=== PATIENT | male | born 1985 | race African-American/Black ===

== ENCOUNTER 2020-09-13 18:58 | Inpatient (IN) | payer OTHER ==
[~2020-09-13] VITALS: Ht 190.5 cm; Wt 73.6 kg
[2020-09-13 18:59] VITALS: BP 134/66
[2020-09-13 19:51] LABS: ABSOLUTE NEUTROPHILS 4.3 thou/uL (1.4-8.2); BASOPHILS 0.9 % (0.0-2.0); EOSINOPHILS 2.6 % (0.0-3.0); HEMATOCRIT 31.4 % (42.0-52.0); LYMPHOCYTES 37.1 % (24.0-44.0); MCH 33.1 pg (26.0-34.0); MCHC 34.9 g/dL (28.0-37.0); MCV 94.8 fL (80.0-100.0); MONOCYTES 7.4 % (1.0-8.0); PLATELET COUNT 298 thou/uL (150-400); RBC 3.31 mil/uL (4.50-6.00); WBC 8.2 thou/uL (4.0-11.0)
[2020-09-13 20:00] LABS: CALCIUM 8.7 mg/dL (8.5-10.1); CREATININE 1.1 mg/dL (0.7-1.3); POTASSIUM 4.2 mmol/L (3.5-5.1)
[2020-09-13 20:08] LABS: ALBUMIN 2.9 g/dL (3.4-5.0); DIRECT BILIRUBIN 0.1 mg/dL (<0.1-0.2); TOTAL BILIRUBIN 0.3 mg/dL (0.2-1.0); TOTAL PROTEIN 6.7 g/dL (6.4-8.2)
[2020-09-13 20:28] LABS: APTT 22.4 Seconds (24.5-32.8); INR 1.05; PROTIME 11.4 Seconds (10.5-12.1)
[2020-09-13 21:02] VITALS: BP 108/67
[2020-09-13 21:34] VITALS: BP 108/67
[2020-09-14] VITALS: BP 136/87
--- NOTE | 2020-09-14 03:05 | NUR ---
ASSESSMENT: PT ARRIVED ON THE UNIT AT 2130 VIA CART FROM ED. PT IS ALERT AND ORIENT TIMES FOUR. UP AD CAMILLE, SLIGHTLY WEAK. VSS, AFEBRILE. DENIES N/V AND BLOODY STOOLS. SR PER MONITOR. ST WITH ELEVATION. TOLERATING PO INTAKE WITHOUT NAUSEA. CT OF ABD SCHEDULED FOR AM. CONSULT FOR JIM SALMON (GASTROENDTEROLOGY). DENIES ABD PAIN. PT HAS BEEN TYPE/SCREEN. SLOW PROGRESS TOWARDS DC GOALS, WILL CONTINUE TO MONITOR.
[2020-09-14 04:45] VITALS: BP 122/70
[2020-09-14 05:02] LABS: MCH 33.6 pg (26.0-34.0); MCHC 35.5 g/dL (28.0-37.0); MCV 94.8 fL (80.0-100.0); RBC 2.53 mil/uL (4.50-6.00); RDW 12.5 % (10.5-14.5); WBC 8.9 thou/uL (4.0-11.0)
[2020-09-14 05:03] LABS: CALCIUM 7.8 mg/dL (8.5-10.1); CREATININE 0.8 mg/dL (0.7-1.3); POTASSIUM 4.2 mmol/L (3.5-5.1)
[2020-09-14 05:13] LABS: HEMOGLOBIN 8.5 gm/dL (14.0-18.0)
[2020-09-14 07:15] VITALS: BP 127/67
[2020-09-14 12:15] VITALS: BP 139/69
[2020-09-14 15:55] VITALS: BP 135/71
[2020-09-14 19:31] VITALS: BP 137/68
[2020-09-15 04:27] VITALS: BP 128/79
--- NOTE | 2020-09-15 05:21 | NUR ---
SLEPT MOST OF SHIFT. UP AD CAMILLE IN ROOM WITH STEADY GAIT. DENIES COMPLAINTS OF BLEEDING OR PAIN. STATES HE FEELS MUCH BETTER. WORKING ON GOALS AND PLAN OF CARE FOR NOC. CONTINUE TO ASSES.
[2020-09-15 08:35] LABS: HEMATOCRIT 21.9 % (42.0-52.0); HEMOGLOBIN 7.6 gm/dL (14.0-18.0)
[2020-09-15 11:55] VITALS: BP 127/86
[2020-09-15 14:51] VITALS: BP 127/86
[2020-09-15] MEDS ORDERED: PROTONIX 20 MG20 M1 PO (14:53)
--- NOTE | 2020-09-15 15:19 | NUR ---
RECEIVED THE PATIENT CONSCIOUS AND ORIENTED.ON ROOM AIR BREATHING SPONTANEOUSLY.NOT IN PAIN OR DISTRESS.HIS IV WAS OUT EARLY THIS MORNING AND PATIENT REFUSED TO HAVE IT REINSERTED SINCE ACCORIDNG TO HIM HE WILL BE DISCHARGED TODAY.GI DOCTOR REVIWED THE CBC TODAY AND IT WAS OK TO DISCHARGE THE PATIENT ON THEIR STANDPOINT. WAS ALSO OK TO DISCHARGE THE PATIENT.
--- NOTE | 2020-09-17 18:06 | PATH ---
[facility] [address] [place] [address] PATHOLOGY RPT PROCEDURE Name: ROSALINDA MARY Room #: 209-P DIS IN M.R.#: [id number] Admission: 09/13/20 Date of : 81 Discharge: 09/15/20 Report #: [id number] Path Case #: [id number] [facility] Accession Number: [id number] . 01 Material submitted: . stomach - ANTRAL BIOPSY FOR H.PYLORI . 01 Clinical history: . GI BLEED, DUODENAL / GASTRIC ULCER . 02 Diagnosis: Gastric mucosa, antrum for Helicobacter pylori, endoscopic biopsy: - Helicobacter pylori induced moderate active gastritis. - Negative for intestinal metaplasia or atrophy. - Numerous Helicobacter pylori organisms present on the properly controlled immunohistochemical stain. (I[facility]:pit; 09/17/2020) QTP 09/17/2020 1215 Local . 02 Electronically signed: . Keely Patel MD, Pathologist NPI- [id number] . 01 Gross description: . Received in formalin labeled "Mary, Mirzate, antral biopsy for H. pylori " is a fragment of sharma-brown soft tissue measuring 0.8 x 0.4 x 0.3 cm. The specimen is submitted entirely in A1. ([facility]; 09/16/2020) GZA/GZA 09/16/2020 1759 Local . 02 Pathologist provided ICD-10: K29.60, B96.81 . 02 CPT . 749742, [id number] Specimen Comment: A courtesy copy of this report has been sent to [phone] Specimen Comment: Report sent to Performed at: [address], [place] [id number] MD Pacheco Euceda MD Phone: [phone] Performed at: [address] [id number] MD Keely Patel MD Phone: [phone]
== END 2020-09-15 15:10 | disposition home or self-care (01) | DRG 378 ==
LOC: ER 18:58 → EROBS 20:44 → 2N 21:36
PROVIDERS: Nurse Practitioner; Nurse Practitioner Family; ADMIT Hospitalist; ATTEND Hospitalist
PROC: 3E0G8GC Introduction of Other Therapeutic Substance into Upper GI, Via Natural or Artificial Opening Endoscopic (ICD-10-PCS; principal; 2020-09-14)
PROC: 0DB78ZX Excision of Stomach, Pylorus, Via Natural or Artificial Opening Endoscopic, Diagnostic (ICD-10-PCS; principal; 2020-09-14)
DX: K25.4 Chronic or unspecified gastric ulcer with hemorrhage (principal); D62 Acute posthemorrhagic anemia; F17.210 Nicotine dependence, cigarettes, uncomplicated; F12.90 Cannabis use, unspecified, uncomplicated; F10.10 Alcohol abuse, uncomplicated; K44.9 Diaphragmatic hernia without obstruction or gangrene; K26.4 Chronic or unspecified duodenal ulcer with hemorrhage; Z20.822 Contact with and (suspected) exposure to COVID-19; Z91.19 Patient's noncompliance with other medical treatment and regimen; Z71.6 Tobacco abuse counseling; Z71.41 Alcohol abuse counseling and surveillance of alcoholic
CPT/HCPCS: 10081; 62110; 62900; 70005

== ENCOUNTER 2020-09-16 20:04 | Inpatient (IN) | payer OTHER ==
[2020-09-16] VITALS (11 sets, daily range): BP systolic 38–143; BP diastolic 14–63
[~2020-09-16] VITALS: Ht 182.9 cm; Wt 74.8 kg
[~2020-09-16 20:04] MED LIST: PROTONIX 20 MG20 M1 PO
[2020-09-16 21:06] LABS: EOSINOPHILS 0.9 % (0.0-3.0)
[2020-09-16 21:09] LABS: BASOPHILS 0.5 % (0.0-2.0); LYMPHOCYTES 37.2 % (24.0-44.0); MCH 34.4 pg (26.0-34.0); MCHC 34.9 g/dL (28.0-37.0); MCV 98.6 fL (80.0-100.0); POLYS 57.4 % (36.0-66.0); RBC 1.27 mil/uL (4.50-6.00); RDW 12.8 % (10.5-14.5); WBC 6.9 thou/uL (4.0-11.0)
[2020-09-16 21:12] LABS: HEMATOCRIT 12.5 % (42.0-52.0); HEMOGLOBIN 4.4 gm/dL (14.0-18.0)
[2020-09-16 21:19] LABS: CALCIUM 7.8 mg/dL (8.5-10.1); CREATININE 0.9 mg/dL (0.7-1.3); POTASSIUM 4.3 mmol/L (3.5-5.1)
[2020-09-16 21:22] LABS: ALBUMIN 2.4 g/dL (3.4-5.0); DIRECT BILIRUBIN < 0.1 mg/dL (<0.1-0.2); LIPASE 158 U/L (73-393); SGOT 17 U/L (15-37); SGPT 16 U/L (30-65); TOTAL BILIRUBIN 0.2 mg/dL (0.2-1.0); TOTAL PROTEIN 4.8 g/dL (6.4-8.2)
[2020-09-16 22:02] LABS: ABSOLUTE NEUTROPHILS 8.2 thou/uL (1.4-8.2); BASOPHILS 0.5 % (0.0-2.0); EOSINOPHILS 0.8 % (0.0-3.0); MCH 33.7 pg (26.0-34.0); MCHC 35.3 g/dL (28.0-37.0); MCV 95.3 fL (80.0-100.0); MONOCYTES 5.2 % (1.0-8.0); PLATELET COUNT 179 thou/uL (150-400); POLYS 71.5 % (36.0-66.0); RDW 12.5 % (10.5-14.5); WBC 11.5 thou/uL (4.0-11.0)
[2020-09-16 22:04] LABS: HEMATOCRIT 11.5 % (42.0-52.0)
--- NOTE | 2020-09-16 22:13 | NUR ---
Called to give report but was told to call back due to RNs dealing with a difficult pt at this time
[2020-09-16 22:49] LABS: PLATELET COUNT 9 thou/uL (150-400)
[2020-09-17] VITALS (41 sets, daily range): BP systolic 77–152; BP diastolic 46–126
[2020-09-17 04:23] LABS: CALCIUM 7.7 mg/dL (8.5-10.1); CREATININE 0.8 mg/dL (0.7-1.3)
[2020-09-17 04:35] LABS: HEMATOCRIT 23.1 % (42.0-52.0); MCH 32.2 pg (26.0-34.0); MCHC 34.4 g/dL (28.0-37.0); MCV 93.6 fL (80.0-100.0); RBC 2.47 mil/uL (4.50-6.00); WBC 12.1 thou/uL (4.0-11.0)
--- NOTE | 2020-09-17 12:51 | NUR ---
0730-SLEEPING.--VW 0930-PIV'S RT ARM BOTH INFILTRATED.ARM PAINFUL,SWOLLEN.PT STATES IT HAS BEEN LIKE THAT SINCE THE BLOOD WAS GIVEN. NEW PIV LT FA,IV'S ON RT D/C'D. WARM COMPRESS TO RT ARM.DENIES ABD PAIN/DISCOMFORT.NO NAUSEA.--VW 1000-PERMIT FOR EGD paige HUERTA NP,IN TO SEE PT. PT INSTRUCTED ON NPO. DID NOT TAKE ANY CLR LQDS FOR BREAKFAST. PT LYING W COVERS OVER HIS HEAD. N/C/NEEDS VOICED.--VW 1250-TO G.I. LAB W G.I. CREW VIA STRETCHER. PT STOOD TO GET ON STRETCHER.--VW
--- NOTE | 2020-09-17 13:10 | NUR ---
Assessment completed w/ pt at bedside. Pt A&Ox4 Pt lives alone in apt home on 3rd floor w/ elevator no steps RX: [facility] [address] [place] [address] Pt is unsinsured and may need medication assistance upon D/C COVID vaccine: None No preious hx w/ HH/SNF/LTACH/REHAB/HOSPICE/DIALYSIS FAMILY TO TRANSPORT HOME UPON D/C SPOKESPERSON IF PT IS INCAPICITATED: ZACKARY NOK: COUSIN BOB BE [phone] NO PCP: PCP LIST PROVIDED FOR PT TO MAKE APPOINTMENT SW provided pt w/ additional resources for medication assistance and PCP list in the area D/C PLAN: Home when medically stable - pt may need assistance for medication
[2020-09-18] VITALS (15 sets, daily range): BP systolic 106–132; BP diastolic 55–86
[2020-09-18 05:29] LABS: HEMOGLOBIN 8.1 gm/dL (14.0-18.0)
[2020-09-18 16:08] LABS: URINE BILIRUBIN NEGATIVE (Negative); URINE BLOOD NEGATIVE (Negative); URINE CLARITY CLEAR; URINE COLOR YELLOW; URINE GLUCOSE-RANDOM* NEGATIVE (Negative); URINE KETONES NEGATIVE (Negative); URINE LEUKOCYTES-REFLEX NEGATIVE (Negative); URINE NITRITE-REFLEX NEGATIVE (Negative); URINE PROTEIN (DIPSTICK) NEGATIVE (Negative); URINE UROBILINOGEN 0.2 E.U./dl (0.2-1.0)
--- NOTE | 2020-09-18 16:43 | NUR ---
ASSUMED CARE AT 0700. PATIENT PROGRESSING TOWARDS THE PLAN OF CARE. PATIENT HAS CC TELE ORDERS AND AWAITING A BED.
[2020-09-19 07:48] LABS: CALCIUM 8.1 mg/dL (8.5-10.1); CREATININE 1.1 mg/dL (0.7-1.3); MAGNESIUM 1.8 mg/dL (1.8-2.4); POTASSIUM 4.1 mmol/L (3.5-5.1)
[2020-09-19 07:53] LABS: HEMATOCRIT 24.3 % (42.0-52.0); HEMOGLOBIN 8.6 gm/dL (14.0-18.0); MCH 33.8 pg (26.0-34.0); MCHC 35.4 g/dL (28.0-37.0); MCV 95.6 fL (80.0-100.0); RBC 2.54 mil/uL (4.50-6.00); RDW 13.5 % (10.5-14.5); WBC 10.6 thou/uL (4.0-11.0)
[2020-09-19 08:25] VITALS: BP 126/84
[2020-09-19 10:00] VITALS: BP 126/84
[2020-09-19 13:04] VITALS: BP 125/75
[2020-09-19 16:32] VITALS: BP 99/62
--- NOTE | 2020-09-19 18:02 | NUR ---
PT ARRIVED TO UNIT APPROX 1745. PT ALERT ORIENTED.VSS. DENIES PAIN. NO S/SX BLEEDING. PLAN FOR DC ONCE MEDICALLY STABLE. CURRENTLY ASKING FOR FOOD, WILL ATTEND TO PT'S NEEDS. CONT POC. WILL PASS ON REPORT TO NOC RN
[2020-09-19 20:15] VITALS: BP 133/86
[2020-09-20 02:42] LABS: HEMATOCRIT 24.7 % (42.0-52.0); HEMOGLOBIN 8.6 gm/dL (14.0-18.0); MCHC 34.9 g/dL (28.0-37.0); MCV 94.6 fL (80.0-100.0); RBC 2.61 mil/uL (4.50-6.00); RDW 13.3 % (10.5-14.5); WBC 12.8 thou/uL (4.0-11.0)
[2020-09-20 04:36] VITALS: BP 125/84
[2020-09-20 07:15] VITALS: BP 134/88
--- NOTE | 2020-09-20 07:50 | NUR ---
SLEPT MOST OF SHIFT. UP AD CAMILLE IN ROOM WITH STEADY GAIT. WORKING ON GOALS AND PLAN OF CARE FOR NOC. CONTINUE TO ASSES CLOSELY.
[2020-09-20 11:15] VITALS: BP 125/82
[2020-09-20] MEDS ORDERED: CLARITHROMYCIN250 M2 PO (12:41)
[2020-09-20] MEDS ORDERED: AMOXICILLIN 50500 M1 PO (12:41)
[2020-09-20 12:45] VITALS: BP 125/82
--- NOTE | 2020-09-20 13:07 | NUR ---
Pt dcing home today and ridida is here. He has a month of protonix at home and gets paid today so he will fill his atb scripts at [facility] this afternoon. He is also heading to [facility] to get his financial services binu approved for the discount there. Cm has [facility]ed [facility] refills should he need to get a 1 or 2 filled here by voucher. They are aware of the situation. No other needs noted.
== END 2020-09-20 13:54 | disposition home or self-care (01) | DRG 377 ==
LOC: ER 20:04 → EROBS 21:55 → ICU 22:27 → 2N 09-19 17:59
PROVIDERS: Emergency Medicine; Nurse Practitioner; Nurse Practitioner Family; ADMIT Internal Medicine; ATTEND Internal Medicine
PROC: 30233N1 Transfusion of Nonautologous Red Blood Cells into Peripheral Vein, Percutaneous Approach (ICD-10-PCS; principal; 2020-09-16)
PROC: 3E0G8GC Introduction of Other Therapeutic Substance into Upper GI, Via Natural or Artificial Opening Endoscopic (ICD-10-PCS; 2020-09-17)
DX: K26.4 Chronic or unspecified duodenal ulcer with hemorrhage (principal); E43 Unspecified severe protein-calorie malnutrition; D62 Acute posthemorrhagic anemia; F17.210 Nicotine dependence, cigarettes, uncomplicated; F10.10 Alcohol abuse, uncomplicated; Z71.6 Tobacco abuse counseling; Z71.41 Alcohol abuse counseling and surveillance of alcoholic; Z91.19 Patient's noncompliance with other medical treatment and regimen; Z20.822 Contact with and (suspected) exposure to COVID-19
CPT/HCPCS: 10078; 10081; 10203; 62110; 62900; 70005; 85076